=== PATIENT | male | born 1960 | race Caucasian/White ===

== ENCOUNTER 2017-01-09 17:24 | Observation (INO) ==
[2017-01-09] MEDS ORDERED: Ondansetron 4 MG/2 ML VIAL IV ONE ×2 (18:28→20:40)
[2017-01-09] MEDS ORDERED: 0.9 % Sodium Chloride 1,000 ML IV ONE (18:28)
[2017-01-09] MEDS ORDERED: *HR* Morphine 2 MG/ML SYRINGE IV ONE (18:28)
--- NOTE | 2017-01-09 18:29 | Emergency Department Note ---
Disposition Clinical Impression: RUQ abdominal pain Chest pain Qualifiers: Chest pain type: unspecified Qualified Code(s): R07.9 - Chest pain, unspecified Disposition: Admitted As Inpatient Condition: Fair Time of Disposition: 21:59 Abdominal Pain HPI - General Chief Complaint: ED Abdominal Pain Stated Complaint: RUQ pain Time Seen by Provider: 01/09/17 18:06 Source: patient Nursing Notes Reviewed: Yes Vital Signs Reviewed: Yes - History of Present Illness HPI Narrative: 56-year-old male with 5 days of right upper quadrant pain, right lower chest pain. History of ICD, history of CAD. Patient states that he has had diaphoresis and nausea associated with his right upper quadrant pain. Patient also states that he is had pain with exertion and at rest. No recent catheterizations. Patient states the pain is 8 out of 10, with radiation to his right side and right back. No history of cholelithiasis, no history of abdominal surgeries besides hernia repairs. Pt Subjective Complaint: abdominal pain Consistency: intermittent Location: RUQ Pain Severity: moderate Pain Scale: 8 Quality: cramping, aching Radiation: none Improves with: nothing Worsens with: eating, vomiting, movement Associated symptoms: Reports: nausea, vomiting, fever. Denies: chills, constipation, hematochezia - Related Data Home Medications Medication Instructions Recorded Confirmed Amiodarone [Cordarone] 200 mg PO DAILY 10/23/15 01/09/17 Aspirin Enteric Coated [Aspirin EC] 81 mg PO DAILY 10/23/15 01/09/17 Carvedilol [Coreg] 6.25 mg PO BIDWM 10/23/15 01/09/17 Furosemide [Lasix] 20 mg PO DAILY 10/23/15 01/09/17 Montelukast [Singulair] 10 mg PO HS 10/23/15 01/09/17 Potassium Chloride 20 meq PO DAILY 10/23/15 01/09/17 Pravastatin Sodium [Pravachol] 40 mg PO DAILY 10/23/15 01/09/17 TraZODone 50 mg PO HS 10/23/15 01/09/17 Cetirizine HCl [Zyrtec] 10 mg PO DAILY 11/27/15 01/09/17 Esomeprazole Magnesium [Nexium] 40 mg PO DAILY 01/13/16 01/09/17 Lisinopril [Zestril] 5 mg PO DAILY 01/13/16 01/09/17 Spironolactone [Aldactone] 25 mg PO DAILY 01/13/16 01/09/17 Albuterol Sulfate [Proair Hfa] 2 puff IH Q4H PRN 01/09/17 01/09/17 Budesonide/Formoterol 160/4.5 2 puff IH BIDR 01/09/17 01/09/17 [Symbicort 160/4.5] Escitalopram [Lexapro] 10 mg PO BID 01/09/17 01/09/17 HYDROcodone/Acet 7.5/325 mg [[place] 2 tab PO TID PRN 01/09/17 01/09/17 7.5-325 mg] Meloxicam [Mobic] 15 mg PO DAILY 01/09/17 01/09/17 Nitroglycerin [Nitrostat] 0.4 mg SL Q5M PRN 01/09/17 01/09/17 Tizanidine HCl 2 mg PO Q8H PRN 01/09/17 01/09/17 Allergies Allergy/AdvReac Type Severity Reaction Status Date / Time azithromycin [From Zithromax] Allergy Hives Verified 01/13/16 15:36 aspirin AdvReac Nausea Verified 01/13/16 15:36 levofloxacin [From Levaquin] AdvReac Diarrhea Verified 01/13/16 15:36 Review of Systems: A 12 point ROS was obtained from the historian. All other systems were reviewed and negative, except as per below, or as documented in the HPI. Constitutional: Denies: fever, chills, weight changes Eyes: Denies: vision changes, eye pain ENT: Denies: nasal congestion, sore throat CV: Chest pain Denies: palpitations, leg swelling Resp: Denies: cough, dyspnea, wheezes, hemoptysis GI: abdominal pain, N, V Denies: D/C, hematochezia, melena Denies: dysuria, hematuria MSK: Denies: back pain, neck pain, extremity pain Skin: Denies: new rashes, new lesions Neuro: Denies: MASTERSON, weakness, sensory changes, gait difficulty Psych: Denies: anxiety, depression All systems ED: reviewed and negative except as stated. Abdominal Pain PMH - Past Medical History Medical history: Reports: hypertension Male Surgical History: Reports: pacemaker/AICD, other Psychiatric history: Reports: anxiety, depression - Social History Smoking status: Never smoker Alcohol use: Reports: none Drug use: Reports: none Physical Exam Constitutional: he appears uncomfortable, is diaphoretic, vital signs reviewed and were within normal limits HEENT: NCAT, sclera anicteric, PERRLA bilaterally, normal external ears bilaterally, nasal septum nondeviated, average dentition, MMM Neck: normal inspection, neck is supple, trachea midline, no JVD Resp: Defibrillator in place in left chest, normal chest inspection, CTA bilaterally, no resp distress, symmetric chest rise CV: RRR, no m/g/r, Pulses +2 Rad, +2 DP/PT bilaterally, no pedal edema GI: Right upper quadrant tenderness with some palpation, positive Gillespie sign BS present and normoactive Back: normal inspection, no tenderness to palpation Neuro: A&O3, CN II-XII grossly intact bilaterally, no gross motor or sensory deficits bilaterally MSK: normal inspection, bilateral UE and LE with normal ROM and no deformities Psych: normal mood, normal affect Skin: No rashes, skin warm, dry, intact - General Limitations: no limitations General appearance: alert Course Course Narrative: 36-year-old male with history of CVA, concerning story given 5 days of illness with right upper quadrant pain, but also with some pain in his right chest, somewhat reproducible, does have a positive Gillespie sign, will get ultrasound basic labwork, EKG is concerning for ischemic pathology, he does have a Q-wave concerning possible ST elevation repeat EKG and consult cardiology Dr. Walker - Reevaluation(s) Reevaluation #1: Admitted to [facility] Time: 21:57 - Consultations Consultation #1: Consult to Dr. Walker, given that he has an elevated 1 mm leads 3 segment, and Q- wave is not diagnostic for STEMI, given no reciprocal changes or ST depressions , his repeat EKG is improved, and he did has had pain for 5 days and not consistent with ACS, records further evaluation observation with troponin trending. Admission to the medicine service, ultrasound pending Vital Signs Temperature 98.6 F 01/09/17 17:55 Pulse Rate 63 01/09/17 17:55 Respiratory Rate 18 01/09/17 17:55 Blood Pressure 126/83 01/09/17 17:55 O2 Sat by Pulse Oximetry 95 01/09/17 17:55 Temperature 98.6 F 01/09/17 17:55 Pulse Rate 63 01/09/17 20:47 Respiratory Rate 0 01/09/17 23:14 Blood Pressure 0/0 01/09/17 23:14 O2 Sat by Pulse Oximetry 94 L 01/09/17 20:47 Oxygen Delivery Oxygen Delivery Room Air Abdominal Pain - Differential Diagnosis Differential Diagnosis: Likely: abdominal pain non-specific - Medical Records Medical records reviewed: Yes I reviewed the patient's medical records. - Lab Data Lab results reviewed: Yes I reviewed the patient's lab results. Result diagrams: 01/09/17 19:09 01/09/17 19:09 Lab Results 01/09/17 01/09/17 01/09/17 Range/Units 18:38 19:09 19:09 WBC 11.7 H (4.3-11.1) K/mcL RBC 5.64 H (4.19-5.50) M/mcL Hgb 16.8 (12.9-16.9) g/dL Hct 49.4 (37.5-50.1) % MCV 87.6 (83.0-100.0) fL MCH 29.8 (28.0-33.3) pg MCHC 34.0 (31.6-35.5) g/dL RDW 12.3 (11.5-14.5) % Plt Count 241 (140-400) K/mcL MPV 9.4 (9.4-12.4) fL Immature Gran % 0.8 (0-4) % Seg Neutrophils % 66.0 % Lymphocytes % 21.5 % Monocytes % 8.7 % Eosinophils % 2.6 % Basophils % 0.4 % Neutrophils # 7.7 (1.6-8.9) K/mcL Lymphocytes # 2.5 (0.6-4.6) K/mcL Monocytes # 1.0 (0.0-1.3) K/mcL Eosinophils # 0.3 (0.0-0.6) K/mcL Basophils # 0.1 (0.0-0.2) K/mcL Sodium 135 L (136-145) mEq/L Potassium 4.2 (3.5-4.5) mEq/L Chloride 103 (98-109) mEq/L Carbon Dioxide 20 (19-29) mEq/L BUN 16 (8-26) mg/dL Creatinine 1.23 (0.72-1.25) mg/dL Est GFR ( Amer) > 60 (> 60) Est GFR (Non-Af Amer) > 60 (> 60) BUN/Creatinine Ratio 13 (6-26) Glucose 119 H (70-99) mg/dL Calculated Osmolality 282 (280-300) Calcium 9.4 (8.6-10.8) mg/dL Total Bilirubin 0.6 (0.2-1.2) mg/dL Direct Bilirubin 0.1 (0.0-0.5) mg/dL Indirect Bilirubin 0.5 (0.0-1.2) mg/dL AST 28 (5-34) Units/L ALT 16 (0-55) Units/L Alkaline Phosphatase 45 (38-126) Units/L Troponin I (0-0.03) ng/mL Serum Total Protein 7.0 (6.0-8.3) g/dL Albumin 4.0 (3.5-5.0) g/dL Globulin 3.0 (2.4-3.5) g/dL Albumin/Globulin Ratio 1.3 (1.1-2.2) Amylase 62 (25-125) Units/L Lipase 47 (8-78) Units/L Urine Color Yellow (Yellow) Urine Clarity Clear (Clear) Urine pH 6.0 (5.0-8.0) pH Units Ur Specific [place] 1.014 (1.010-1.025) Urine Protein Negative (Neg-Trace) mg/dL Urine Glucose (UA) Normal (Normal) mg/dL Urine Ketones Negative (Negative) mg/dL Urine Blood Negative (Negative) Urine Nitrite Negative (Negative) Urine Bilirubin Negative (Negative) Urine Urobilinogen Normal (Normal) mg/dL Ur Leukocyte Esterase Negative (Negative) Ur Culture Indicated? NO (NO) 01/09/17 Range/Units 19:09 WBC (4.3-11.1) K/mcL RBC (4.19-5.50) M/mcL Hgb (12.9-16.9) g/dL Hct (37.5-50.1) % MCV (83.0-100.0) fL MCH (28.0-33.3) pg MCHC (31.6-35.5) g/dL RDW (11.5-14.5) % Plt Count (140-400) K/mcL MPV (9.4-12.4) fL Immature Gran % (0-4) % Seg Neutrophils % % Lymphocytes % % Monocytes % % Eosinophils % % Basophils % % Neutrophils # (1.6-8.9) K/mcL Lymphocytes # (0.6-4.6) K/mcL Monocytes # (0.0-1.3) K/mcL Eosinophils # (0.0-0.6) K/mcL Basophils # (0.0-0.2) K/mcL Sodium (136-145) mEq/L Potassium (3.5-4.5) mEq/L Chloride (98-109) mEq/L Carbon Dioxide (19-29) mEq/L BUN (8-26) mg/dL Creatinine (0.72-1.25) mg/dL Est GFR ( Amer) (> 60) Est GFR (Non-Af Amer) (> 60) BUN/Creatinine Ratio (6-26) Glucose (70-99) mg/dL Calculated Osmolality (280-300) Calcium (8.6-10.8) mg/dL Total Bilirubin (0.2-1.2) mg/dL Direct Bilirubin (0.0-0.5) mg/dL Indirect Bilirubin (0.0-1.2) mg/dL AST (5-34) Units/L ALT (0-55) Units/L Alkaline Phosphatase (38-126) Units/L Troponin I 0.01 (0-0.03) ng/mL Serum Total Protein (6.0-8.3) g/dL Albumin (3.5-5.0) g/dL Globulin (2.4-3.5) g/dL Albumin/Globulin Ratio (1.1-2.2) Amylase (25-125) Units/L Lipase (8-78) Units/L Urine Color (Yellow) Urine Clarity (Clear) Urine pH (5.0-8.0) pH Units Ur Specific [place] (1.010-1.025) Urine Protein (Neg-Trace) mg/dL Urine Glucose (UA) (Normal) mg/dL Urine Ketones (Negative) mg/dL Urine Blood (Negative) Urine Nitrite (Negative) Urine Bilirubin (Negative) Urine Urobilinogen (Normal) mg/dL Ur Leukocyte Esterase (Negative) Ur Culture Indicated? (NO) - Radiology Data Radiology results reviewed: Yes I reviewed the patient's radiology results. Chest X-Ray 01/09/17 18:15 IMPRESSION: No acute cardiopulmonary disease. D/ / Kobe Cox MD / Kobe Cox MD Interpreting Provider: Kobe Cox MD Gallbladder Ultrasound 01/09/17 19:36 IMPRESSION: Fatty liver. Sludge and/or tiny stones within the gallbladder. No imaging features of cholecystitis but satellite tv technician installer reports a positive sonographic Gillespie sign. D/ / Estiven Almonte MD / Estiven Almonte MD Interpreting Provider: Estiven Almonte MD - EKG Data EKG attestation: Yes I reviewed and interpreted this EKG. EKG shows normal: sinus rhythm (CC 3 bpm MS 165 QRS [address] segment 1mm elevation no reciprocal changes, III ;repeated ECG at 1918, with normal sinus axis normal 1 mm elevation with Q waves in lead 3, 23 and aVF with Q waves , no evidence of ST segment changes in reciprocal leads) Rate: normal Rhythm: NSR ST segment elevation in: III (Millimeter) Interpretation: nonspecific ST-T wave changes (consulted with cardiology Dr. Walker, not diagnostic for STEMI) - Core Measures AMI Core Measures Followed: Yes Attestation Statement - Attestation Attestation: For this encounter, I have reviewed the resident, DRILL PRESSER, or PA documentation, treatment plan, and medical decision making; and I have had face to face time with this patient. 56-year-old male presents with concerns of right upper quadrant abdominal pain, right lateral chest pain, nausea, vomiting, diaphoresis. Patient has a history of multiple MIs in the past. Patient states the pain in the right upper quadrant has been present intermittently over the past few days. The pain is associated with his nausea, vomiting and diaphoresis. On physical examination the patient does have tenderness to palpation to the right lateral chest and right upper quadrant. Patient's EKG shows ST elevation in lead 3 compared to his previous. A repeat EKG does not show interval change. I spoke with Dr. Walker regarding the patient's case and presentation. She agreed that the patient does not meet requirements for STEMI and agreed with plan for continued evaluation. Ultrasound of the right upper quadrant was ordered to evaluate for acute cholecystitis. The ultrasound was of poor quality due to the patient's body habitus. The patient is low risk for PE with out tachycardia or tachypnea or hypoxia. Patient has no clinical signs or symptoms of DVT. Heart rate is less than 100. No history of recent immobilization or surgery within the previous 4 weeks. No recent long flight or travel. No previous PE or DVT in personal or family history. No history of hemoptysis. No history of malignancy with treatment within the past 6 months.The patient will be admitted to the hospital for continued evaluation of his ECG changes with associated nausea, vomiting, diaphoresis as well as for evaluation of his right upper quadrant and right lower lateral chest pain. Heart Score - Score History: Moderately Suspicious EKG: Non Specific repolarisation Disturbance Age: 45-65 Risk Factors: Equal/Greater than 3 risk factor or history of atherosclerotic disease Troponin: Less than normal limit HEART Score Total: 5
[2017-01-09 18:50] LABS: Bilirubin,Urine Negative (Negative); Blood,Urine Negative (Negative); Clarity,Urine Clear (Clear); Color,Urine Yellow (Yellow); Glucose,Urine (UA) Normal (Normal); Ketones,Urine Negative (Negative); Leukocyte Esterase,Urine Negative (Negative); Nitrite,Urine Negative (Negative); Protein,Urine Negative (Neg-Trace); Specific Gravity,Urine 1.014 (1.010-1.025); Urobilinogen,Urine Normal (Normal)
[2017-01-09 19:19] LABS: Basophils # 0.1 K/mcL (0.0-0.2); Basophils % 0.4 %; Eosinophils # 0.3 K/mcL (0.0-0.6); Eosinophils % 2.6 %; Hematocrit 49.4 % (37.5-50.1); Hemoglobin 16.8 g/dL (12.9-16.9); Immature Granulocytes % 0.8 % (0-4); Lymphocytes # 2.5 K/mcL (0.6-4.6); Lymphocytes % 21.5 %; Mean Corpuscular Hemoglobin 29.8 pg (28.0-33.3); Mean Corpuscular Volume 87.6 fL (83.0-100.0); Mean Platelet Volume 9.4 fL (9.4-12.4); Monocytes % 8.7 %; Neutrophils # 7.7 K/mcL (1.6-8.9); Platelet Count 241 K/mcL (140-400); Red Blood Count 5.64 M/mcL (4.19-5.50); Red Cell Distribution Width 12.3 % (11.5-14.5)
[2017-01-09 19:33] LABS: Alanine Aminotransferase 16 Units/L (0-55); Albumin/Globulin Ratio 1.3 (1.1-2.2); Alkaline Phosphatase 45 Units/L (38-126); Amylase 62 Units/L (25-125); Aspartate Amino Transferase 28 Units/L (5-34); BUN/Creatinine Ratio 13 (6-26); Bilirubin,Direct 0.1 mg/dL (0.0-0.5); Bilirubin,Indirect 0.5 mg/dL (0.0-1.2); Bilirubin,Total 0.6 mg/dL (0.2-1.2); Blood Urea Nitrogen 16 mg/dL (8-26); Calcium 9.4 mg/dL (8.6-10.8); Carbon Dioxide 20 mEq/L (19-29); Chloride 103 mEq/L (98-109); Glucose 119 mg/dL (70-99); Lipase 47 Units/L (8-78); Osmolality,Calculated 282 (280-300); Potassium 4.2 mEq/L (3.5-4.5); Sodium 135 mEq/L (136-145); eGFR For African Americans > 60 (> 60); eGFR For Non-African Americans > 60 (> 60)
[2017-01-09] MEDS ORDERED: *HR* Morphine 2 MG/ML SYRINGE ONE (19:34)
[2017-01-09] MEDS ORDERED: *HR* HYDROmorphone (PF) 1 MG/ML SYRINGE IV ONE (20:40)
[2017-01-09] MEDS ORDERED: *HR* HYDROmorphone (PF) 1 MG/ML SYRINGE IVP ONE (22:48)
[2017-01-09] MEDS ORDERED: tiZANidine 4 MG TABLET PO PRN (22:58)
[2017-01-09] MEDS ORDERED: Ondansetron 4 MG/2 ML VIAL IVP PRN (23:01)
[2017-01-09] MEDS ORDERED: Naloxone 0.4 MG/ML INJ IVP PRN (23:01)
[2017-01-09] MEDS ORDERED: Albuterol 2.5 MG/3 ML NEBULIZER IH PRN (23:01)
[2017-01-09] MEDS ORDERED: *HR* OxyCODONE Immed Rel 5 MG TABLET PO PRN (23:01)
--- NOTE | 2017-01-09 23:30 | Internal Med History&Physical ---
Date of Encounter: 01/09/17 Time of Encounter: 22:25 Internal Medicine - H&P: HPI Chief complaint: Right upper quadrant and right rib/costal margin pain Admitted From: Emergency Dept Plans for Post Hospital Care: Home History of present illness: Mr. Muñoz is a 56 year old male with CAD, cardiomyopathy s/p ICD, he presents with 5 days of right upper quadrant pain, right lower chest pain. The pain is asssociated with nausea. The pain is rated s 8-10/10. Right lower chest pain is worsened by deep breathing an movement of torso with radiation to right side and back. He has been coughing for over 5 weeks. Pain has no association with meals. RUQ sono done in the ED, was a poor study, suggest billiary sludge/tiny stones. Pain occurs at rest and even more with the slightest activity. No fever , he reports though, intermittent diaphoresis. NO CHILLS OR RIGORS, NO DIARRHEA , no steatorrhea, no jaundice or pruritus. No weight change. No bleeding from any orifice, no new -onset neurological symptoms. No urinary symptoms. He is FULL CODE as per discussion. He nominates his (Elmira Muñoz, [phone]. [phone]) as NOK/POA. ROS: Vital Signs Temperature 98.6 F 01/09/17 17:55 Pulse Rate 63 01/09/17 17:55 Respiratory Rate 18 01/09/17 17:55 Blood Pressure 126/83 01/09/17 17:55 O2 Sat by Pulse Oximetry 95 01/09/17 17:55 Temperature 98.6 F 01/09/17 17:55 Pulse Rate 63 01/09/17 20:47 Respiratory Rate 0 01/09/17 23:14 Blood Pressure 0/0 01/09/17 23:14 O2 Sat by Pulse Oximetry 94 L 01/09/17 20:47 O/E: He is in mild distress from pain. Pain relieved by shallow breath and keep torso still. HEENT: Not pale, anicteric, afebrile, acyanotic. No JVD Chest: No wheezing, reduced air entry, prolonged expiratory phase Heart: RRR, HS1.2 no murmur Abdomen: soft, tender++ in the RUQ, Gillespie is positive. no guarding. no masses. BS+ it recruiter; aao x 3, no gross focal neurological deficits. Extremities: No pedal edema, normal pedal edema, no calf tenderness. Lab Results 01/09/17 01/09/17 01/09/17 Range/Units 18:38 19:09 19:09 WBC 11.7 H (4.3-11.1) K/mcL RBC 5.64 H (4.19-5.50) M/mcL Hgb 16.8 (12.9-16.9) g/dL Hct 49.4 (37.5-50.1) % MCV 87.6 (83.0-100.0) fL MCH 29.8 (28.0-33.3) pg MCHC 34.0 (31.6-35.5) g/dL RDW 12.3 (11.5-14.5) % Plt Count 241 (140-400) K/mcL MPV 9.4 (9.4-12.4) fL Immature Gran % 0.8 (0-4) % Seg Neutrophils % 66.0 % Lymphocytes % 21.5 % Monocytes % 8.7 % Eosinophils % 2.6 % Basophils % 0.4 % Neutrophils # 7.7 (1.6-8.9) K/mcL Lymphocytes # 2.5 (0.6-4.6) K/mcL Monocytes # 1.0 (0.0-1.3) K/mcL Eosinophils # 0.3 (0.0-0.6) K/mcL Basophils # 0.1 (0.0-0.2) K/mcL Sodium 135 L (136-145) mEq/L Potassium 4.2 (3.5-4.5) mEq/L Chloride 103 (98-109) mEq/L Carbon Dioxide 20 (19-29) mEq/L BUN 16 (8-26) mg/dL Creatinine 1.23 (0.72-1.25) mg/dL Est GFR ( Amer) > 60 (> 60) Est GFR (Non-Af Amer) > 60 (> 60) BUN/Creatinine Ratio 13 (6-26) Glucose 119 H (70-99) mg/dL Calculated Osmolality 282 (280-300) Calcium 9.4 (8.6-10.8) mg/dL Total Bilirubin 0.6 (0.2-1.2) mg/dL Direct Bilirubin 0.1 (0.0-0.5) mg/dL Indirect Bilirubin 0.5 (0.0-1.2) mg/dL AST 28 (5-34) Units/L ALT 16 (0-55) Units/L Alkaline Phosphatase 45 (38-126) Units/L Troponin I (0-0.03) ng/mL Serum Total Protein 7.0 (6.0-8.3) g/dL Albumin 4.0 (3.5-5.0) g/dL Globulin 3.0 (2.4-3.5) g/dL Albumin/Globulin Ratio 1.3 (1.1-2.2) Amylase 62 (25-125) Units/L Lipase 47 (8-78) Units/L Urine Color Yellow (Yellow) Urine Clarity Clear (Clear) Urine pH 6.0 (5.0-8.0) pH Units Ur Specific [place] 1.014 (1.010-1.025) Urine Protein Negative (Neg-Trace) mg/dL Urine Glucose (UA) Normal (Normal) mg/dL Urine Ketones Negative (Negative) mg/dL Urine Blood Negative (Negative) Urine Nitrite Negative (Negative) Urine Bilirubin Negative (Negative) Urine Urobilinogen Normal (Normal) mg/dL Ur Leukocyte Esterase Negative (Negative) Ur Culture Indicated? NO (NO) 01/09/17 Range/Units 19:09 WBC (4.3-11.1) K/mcL RBC (4.19-5.50) M/mcL Hgb (12.9-16.9) g/dL Hct (37.5-50.1) % MCV (83.0-100.0) fL MCH (28.0-33.3) pg MCHC (31.6-35.5) g/dL RDW (11.5-14.5) % Plt Count (140-400) K/mcL MPV (9.4-12.4) fL Immature Gran % (0-4) % Seg Neutrophils % % Lymphocytes % % Monocytes % % Eosinophils % % Basophils % % Neutrophils # (1.6-8.9) K/mcL Lymphocytes # (0.6-4.6) K/mcL Monocytes # (0.0-1.3) K/mcL Eosinophils # (0.0-0.6) K/mcL Basophils # (0.0-0.2) K/mcL Sodium (136-145) mEq/L Potassium (3.5-4.5) mEq/L Chloride (98-109) mEq/L Carbon Dioxide (19-29) mEq/L BUN (8-26) mg/dL Creatinine (0.72-1.25) mg/dL Est GFR ( Amer) (> 60) Est GFR (Non-Af Amer) (> 60) BUN/Creatinine Ratio (6-26) Glucose (70-99) mg/dL Calculated Osmolality (280-300) Calcium (8.6-10.8) mg/dL Total Bilirubin (0.2-1.2) mg/dL Direct Bilirubin (0.0-0.5) mg/dL Indirect Bilirubin (0.0-1.2) mg/dL AST (5-34) Units/L ALT (0-55) Units/L Alkaline Phosphatase (38-126) Units/L Troponin I 0.01 (0-0.03) ng/mL Serum Total Protein (6.0-8.3) g/dL Albumin (3.5-5.0) g/dL Globulin (2.4-3.5) g/dL Albumin/Globulin Ratio (1.1-2.2) Amylase (25-125) Units/L Lipase (8-78) Units/L Urine Color (Yellow) Urine Clarity (Clear) Urine pH (5.0-8.0) pH Units Ur Specific [place] (1.010-1.025) Urine Protein (Neg-Trace) mg/dL Urine Glucose (UA) (Normal) mg/dL Urine Ketones (Negative) mg/dL Urine Blood (Negative) Urine Nitrite (Negative) Urine Bilirubin (Negative) Urine Urobilinogen (Normal) mg/dL Ur Leukocyte Esterase (Negative) Ur Culture Indicated? (NO) Chest X-Ray 01/09/17 18:15 No acute cardiopulmonary disease. Gallbladder Ultrasound 01/09/17 19:36 Fatty liver. Sludge and/or tiny stones within the gallbladder. No imaging features of cholecystitis but crown and bridge technician reports a positive sonographic Gillespie sign. EKG: SR, minimal ST T-elevation in inferior leads IMP Right upper quadrant/right lower chest wall pain, pleurisy vs sprain muscle ( from coughing) vs cholecystitis/cholelthiaissis. LFTs are normal. This discounts but does not exclude gall bladder disease. Chronic morbidities HTN CAD Ischemic cardiomyopathy S/P ICD PLAN CT chest, CT ABDOMEN, if normal, obtain HIDA scan, repeat LFTs tomorrow. Optimize pain control Incentive spirometry Past Med Surg Social Fam HX - Past Medical History Medical history: hypertension Psychiatric history: anxiety, depression - Past Surgical History Surgical History: herniorrhaphy - Social History Smoking Status: Never smoker Smokeless Tobacco Status: No Alcohol use: none Drug use: none - Family History Father Cause of : Brain CA Hx Family Cardiac Disorders: Yes (CAD, CABG,) Hx Family Respiratory Disorders: No Hx Family Cancer: Yes (Brain) Hx Family GI Disorders: No Hx Family Genitourinary Disorders: No Hx Family Endocrine Disorder: No Hx Family Musculoskeletal Disorders: No Hx Family Neuromuscular Disorders: No Hx Family Neurologic Disorders: No Hx Family HEENT Disorders: No Hx Family Autoimmune Disorders: No Hx Family Reproductive Disorders: No Hx Family Psychosocial Disorders: No Hx Family Medical Disorders: No Mother Hx Family Cardiac Disorders: Yes (TIA, HTN, MD) Hx Family Respiratory Disorders: No Hx Family Cancer: No Hx Family GI Disorders: No Hx Family Genitourinary Disorders: No Hx Family Endocrine Disorder: No Hx Family Musculoskeletal Disorders: Yes (Fibromyalgia) Hx Family Neuromuscular Disorders: No Hx Family Neurologic Disorders: No Hx Family HEENT Disorders: No Hx Family Autoimmune Disorders: No Hx Family Reproductive Disorders: No Hx Family Psychosocial Disorders: No Hx Family Medical Disorders: No Brother Hx Family Cardiac Disorders: Yes (CVA) Hx Family Endocrine Disorder: Yes (DM) Internal Medicine - H&P: Meds Amiodarone [Cordarone] 200 mg PO DAILY 10/23/15 [History] Aspirin Enteric Coated [Aspirin EC] 81 mg PO DAILY 10/23/15 [History] Carvedilol [Coreg] 6.25 mg PO BIDWM 10/23/15 [History] Furosemide [Lasix] 20 mg PO DAILY 10/23/15 [History] Montelukast [Singulair] 10 mg PO HS 10/23/15 [History] Potassium Chloride 20 meq PO DAILY 10/23/15 [History] Pravastatin Sodium [Pravachol] 40 mg PO DAILY 10/23/15 [History] TraZODone 50 mg PO HS 10/23/15 [History] Cetirizine HCl [Zyrtec] 10 mg PO DAILY 11/27/15 [History] Esomeprazole Magnesium [Nexium] 40 mg PO DAILY 01/13/16 [History] Lisinopril [Zestril] 5 mg PO DAILY 01/13/16 [History] Spironolactone [Aldactone] 25 mg PO DAILY 01/13/16 [History] Albuterol Sulfate [Proair Hfa] 2 puff IH Q4H PRN 01/09/17 [History] Budesonide/Formoterol 160/4.5 [Symbicort 160/4.5] 2 puff IH BIDR 01/09/17 [ History] Escitalopram [Lexapro] 10 mg PO BID 01/09/17 [History] HYDROcodone/Acet 7.5/325 mg [[place] 7.5-325 mg] 2 tab PO TID PRN 01/09/17 [ History] Meloxicam [Mobic] 15 mg PO DAILY 01/09/17 [History] Nitroglycerin [Nitrostat] 0.4 mg SL Q5M PRN 01/09/17 [History] Tizanidine HCl 2 mg PO Q8H PRN 01/09/17 [History] Allergies azithromycin [From Zithromax] Allergy (Verified 01/13/16 15:36) Hives aspirin Adverse Reaction (Verified 01/13/16 15:36) Nausea PATIENT STATES HIGH DOSE CAUSEA STOMACH PAIN. TAKES 81MG DAILY levofloxacin [From Levaquin] Adverse Reaction (Verified 01/13/16 15:36) Diarrhea All Systems PM: A 10-system review of systems was performed and is negative for pertinent findings except as documented above in the HPI. - Constitutional Vitals: Temp Pulse Resp BP Pulse Ox 98.6 F 63 0 0/0 94 L 01/09/17 17:55 01/09/17 20:47 01/09/17 23:14 01/09/17 23:14 01/09/17 20:47 Internal Med - H&P Results - Labs CBC & Chem 7: 01/09/17 19:09 01/09/17 19:09 - VTE Reasons for not Prescribing Prophylaxis: Treatment not Indicated - Low risk for VTE
[2017-01-10] MEDS ORDERED: traZODone 50 MG TABLET PO SCH ×2 (01:21→21:00)
[2017-01-10] MEDS: *HR* Morphine 2 MG/ML SYRINGE IVP PRN ×3 (01:30→15:18)
[2017-01-10] MEDS ORDERED: Furosemide 20 MG TABLET PO SCH (09:00)
[2017-01-10] MEDS ORDERED: *HR* Amiodarone 200 MG TABLET PO SCH (09:00)
[2017-01-10] MEDS ORDERED: Spironolactone 25 MG TABLET PO SCH (09:00)
[2017-01-10] MEDS ORDERED: Loratadine 10 MG TABLET PO SCH (09:00)
[2017-01-10] MEDS ORDERED: Aspirin Enteric Coated 81 MG Tablet PO SCH (09:00)
[2017-01-10] MEDS ORDERED: Budesonide/Formoterol 160/4.5 MDI IH SCH (10:00)
[2017-01-10 15:13] VITALS: BP 110/61
--- NOTE | 2017-01-10 15:47 | Discharge Summary ---
Date of Encounter: 01/10/17 Time of Encounter: 15:00 - Discharge Diagnosis (1) RUQ abdominal pain Priority: Primary Status: Acute (2) Acute bronchitis Priority: Secondary Status: Acute Qualifiers: Bronchitis organism: unspecified organism Qualified Code(s): J20.9 - Acute bronchitis, unspecified - Discharge Medications Home Medications: Amiodarone [Cordarone] 200 mg PO DAILY 10/23/15 [History] Aspirin Enteric Coated [Aspirin EC] 81 mg PO DAILY 10/23/15 [History] Carvedilol [Coreg] 6.25 mg PO BIDWM 10/23/15 [History] Furosemide [Lasix] 20 mg PO DAILY 10/23/15 [History] Montelukast [Singulair] 10 mg PO HS 10/23/15 [History] Potassium Chloride 20 meq PO DAILY 10/23/15 [History] Pravastatin Sodium [Pravachol] 40 mg PO DAILY 10/23/15 [History] TraZODone 50 mg PO HS 10/23/15 [History] Cetirizine HCl [Zyrtec] 10 mg PO DAILY 11/27/15 [History] Esomeprazole Magnesium [Nexium] 40 mg PO DAILY 01/13/16 [History] Lisinopril [Zestril] 5 mg PO DAILY 01/13/16 [History] Spironolactone [Aldactone] 25 mg PO DAILY 01/13/16 [History] Albuterol Sulfate [Proair Hfa] 2 puff IH Q4H PRN 01/09/17 [History] Budesonide/Formoterol 160/4.5 [Symbicort 160/4.5] 2 puff IH BIDR 01/09/17 [ History] Escitalopram [Lexapro] 10 mg PO BID 01/09/17 [History] HYDROcodone/Acet 7.5/325 mg [[place] 7.5-325 mg] 2 tab PO TID PRN 01/09/17 [ History] Meloxicam [Mobic] 15 mg PO DAILY 01/09/17 [History] Nitroglycerin [Nitrostat] 0.4 mg SL Q5M PRN 01/09/17 [History] Tizanidine HCl 2 mg PO Q8H PRN 01/09/17 [History] GuaiFENesin/Dextromethorphan [Robitussin/DM] 10 ml PO Q6HR 10 Days 01/10/17 [Rx] OxyCODONE/APAP 5/325 [Percocet 5/325 MG] 1 each PO Q4HR PRN #20 tablet 01/10/17 [Rx] Allergies/Adverse Reactions: Allergies azithromycin [From Zithromax] Allergy (Verified 01/13/16 15:36) Hives aspirin Adverse Reaction (Verified 01/13/16 15:36) Nausea PATIENT STATES HIGH DOSE CAUSEA STOMACH PAIN. TAKES 81MG DAILY levofloxacin [From Levaquin] Adverse Reaction (Verified 01/13/16 15:36) Diarrhea Procedures/tests Complete & Pending: Procedures Performed prior 72 hours Category Date Time Status CT abd pelvis wo no iv no oral [CT] Routine Cat Scan 01/09/17 22:[address] chest wo con [CT] Routine Cat Scan 01/09/17 22:50 Draft NM hepatobiliary w drug [NM] Routine Exams 01/10/17 Draft MR MRCP [MR abdomen wo con] [MR] Stat MRI 01/10/17 08:16 Stop Req Date of admission: 01/09/17 21:50 Primary care physician: PCP NO Discharging clinician: Violeta Salazar Anticipated date of discharge: 01/10/17 - Patient Status Disposition: Home, Self-Care Condition: Good Functional capacity at discharge: independent ambulation Overall status at discharge: patient is progressing back to baseline - Discharge Instructions Instructions: Chest Pain (DC) - Diet and Activity Activity: increase activity as tolerated Diet: low fat, low cholesterol, low salt diet Interval History: Mr. Muñoz is a 56 year old male with CAD, cardiomyopathy s/p ICD, he presents with 5 days of right upper quadrant pain, right lower chest pain. The pain is asssociated with nausea. The pain is rated s 8-10/10. Right lower chest pain is worsened by deep breathing an movement of torso with radiation to right side and back. He has been coughing for over 5 weeks. Pain has no association with meals. RUQ sono done in the ED, was a poor study, suggest billiary sludge/tiny stones. Pain occurs at rest and even more with the slightest activity. No fever , he reports though, intermittent diaphoresis. NO CHILLS OR RIGORS, NO DIARRHEA , no steatorrhea, no jaundice or pruritus. No weight change. No bleeding from any orifice, no new -onset neurological symptoms. No urinary symptoms. Hospital course: Mr. Muñoz is a 56 year old male admitted for right upper quadrant pain to rule out hepatobiliary disease. Patient was placed on ultrasound liver, CT abd, and HIDA scan, result not support cholelithiasis or cholecystitis. Lipase and liver enzyme negative. Pt has recent cough. His pain is related to movement but not meals. Consider skelontomuscular pain. Will treat him with pain medication, heat pad physical treatment by pt self, and control cough. Pt was seen and examined. He is awake, alert, oriented x 3. In mild to moderate pain, worsen on movement, with right lower chest wall and RUQ tenderness. Patient with discharge home with pain medication and cough syrup. Follow-up with PCP as outpatient. - Time Spent with Patient Total time spent providing and/or coordinating discharge services: 40 minutes Greater than 30 minutes - Constitutional Vitals: Temp Pulse Resp BP Pulse Ox 97.6 F 60 15 110/61 95 01/10/17 15:10 01/10/17 15:10 01/10/17 15:10 01/10/17 15:10 01/10/17 15:10 General appearance: Present: mild distress, A&O X 3, answers questions appropriately - Head Head exam: Present: atraumatic, normocephalic - Eye Eye exam: Present: PERRL, conjuntiva pink, sclera anicteric Pupils: Present: PERRL - Neck Neck exam general surgery: Present: supple, trachea midline. Absent: lymphadenopathy - Respiratory Respiratory exam: Present: chest wall tenderness (Right lower chest wall tenderness), CTAB. Absent: accessory muscle use, rales, rhonchi, wheezes - Cardiovascular Cardiovascular exam: Present: RRR, +S1, +S2. Absent: diastolic murmur, gallop, rubs, systolic murmur - GI/Abdominal GI/Abdominal exam: Present: normal bowel sounds, soft, tenderness (RUQ), no peritoneal signs. Absent: distended - Extremities Exam Extremities exam: Present: warm, radial pulses palpable and symetrical. Absent : calf tenderness, cyanotic, pedal edema - Neurological Exam Neurological exam: Present: CN II-XII intact, oriented X3, no focal deficits. Absent: pronater drift, facial droop, speech deficit - Skin Skin exam: Present: dry, intact - VTE Reasons for not Prescribing Prophylaxis: Treatment not Indicated - Low risk for VTE
--- NOTE | 2017-01-12 15:04 | Electrocardiograph Report ---
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
--- NOTE | 2017-01-12 15:34 | Electrocardiograph Report ---
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
== END 2017-01-10 16:22 | disposition home or self-care (01) ==
LOC: 3BNU 17:24 → EMEROO 17:24 → 3BNU 23:14
PROVIDERS: ADMIT Family Medicine; ATTEND Nurse Practitioner Family